=== PATIENT | male | born 1965 | race Caucasian/White ===

== ENCOUNTER 2022-08-27 07:25 | Inpatient (IN) ==
[2022-08-27] MEDS ORDERED: niCARdipine HCL INJ 2.5 MG/ML 10 ML AMP ONE (07:34)
[2022-08-27] MEDS ORDERED: HEPARIN (PORCINE) 1000 UNIT/ML 10 ML (CATH LAB USE ONLY) ONE ×2 (07:34→08:28)
[2022-08-27] MEDS ORDERED: MIDAZOLAM HCL 1 MG/ML 2ML VIAL ONE ×2 (07:34→08:32)
[2022-08-27] MEDS ORDERED: NITROGLYCERIN/D5W 100MCG/ML 20ML SYR ONE (07:35)
[2022-08-27] MEDS ORDERED: fentaNYL citrate 100 MCG/2 ML VIAL ONE (07:35)
--- NOTE | 2022-08-27 07:38 | Emergency Department Note ---
Impression & Plan STEMI (ST elevation myocardial infarction), HTN (hypertension) with goal to be determined ED Provider Note Name: EARL LUDWIG Age: 56 Sex: M Arrives Via: Walk-In Informant: Patient ED Provider: David Underwood MD Chief Complaint: Chest pain Impression: As per impressions above Medical Decision Makin-year-old male without significant past medical history who is a smoker and does have a family history of cardiac disease arrives for evaluation of subster nal chest pain. Pain starting about 12 hours prior to arrival though significantly worse in the last few hours. And is dyspneic, tachypneic, diaphoretic and very uncomfortable on arrival. He was placed on a nonrebreather with vast improvement in his symptoms. Initial EKG with inferior STEMI morp hology and heart alert was immediately called. Initial exam with good pulses all 4 extremities and a chest x-ray without widened mediastinum. He was given aspirin 324 mg p.o. His blood pressure is significantly elevated thus he was given sublingual nitro x2 with improvement in his blood pressure. Patient has essentially resolution of his pain at this point. He was taken emergently to the Electric Meter Repairer. Prior Medical Record and Triage/Nursing Notes reviewed by Me Additional history obtained from significant other Differentials:Cardiac ischemia, aortic dissection, pulmonary embolism, pneumothorax, pneumonia, pericarditis, myocarditis, esophageal rupture, GERD, cholecystitis, pancreatitis, musculoskeletal, as well as other pathologies. Vital Signs: reviewed and remarkable for HTN Interventions: Aspirin 324mg PO, SLNTG. Heparin/other anticoagulant deferred to street inspector at bedside. Labs:Reviewed and remarkable for elevated trop Imaging:X ray results are stated below per my interpretation: Reviewed by Hospitalist Chest: 1 view: No infiltrate, no effusion, normal cardiac border. EKG:As per my interpretation. Indication chest pain. Normal sinus rhythm at 69 bpm with a widened QRS and findings of a right bundle branch block. Acute STEMI morphology noted primarily through the inferior leads. No previous EKG for comparison. There is no ectopy. QTc is 424. Cardiac/Tele Monitoring: Cardiac Monitoring: An Order was placed for continuous cardiac monitoring. The monitor shows a rate of 70 with a normal sinus rhythm. Consults:Dr Ludwig Interventional Cardiology. Dr Myke Peck Hospitalist Plan: Disposition:Hospitalization. Condition: Good History of Present Illness:56-year-old male arrives for evaluation of chest pain. Patient notes mild substernal chest pain overnight. Rapidly worsening this morning. Worse with exertion. He notes diaphoresis, nausea, lightheadedness. He does admit he feels somewhat short of breath as well. He denies any syncope, pain to his back or shoulders, vomiting, abdominal pain or other concerning signs or symptoms. He has had no recent fevers, colds, illness. Patient without any significant past medical history. He does note a family history of cardiac disease. Patient also is a smoker 5 to 6 cigarettes a day. He notes he had been feeling well up until last night. No falls, trauma, injuries. No medications prior to arrival. ROS: See above HPI for pertinent positives & negatives. A total of 10 systems reviewed and were otherwise negative. 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 diaphoretic EYES: No scleral icterus, unremarkable pupils. ENT: Mucous membranes moist, no nasal congestion. NECK: No masses appreciated, nomeningismus, trachea is midline. RESPIRATORY: Tachypnea. Clear to auscultation and equal bilaterally. No wheeze, no rhonchi. CARDIOVASCULAR: Regular rate and rhythm.No murmurs, rubs, gallops appreciated. GASTROINTESTINAL: Abdomen soft, non-tender, no peritonitis.Bowel sounds positive.No masses appreciated. BACK: No midline tenderness, no CVA tenderness EXTREMITIES: Normal motion all extremities, no cyanosis, no edema. NEUROLOGIC: Alert and oriented, no acute motor or sensory deficits, no focal weakness, cranial nerves grossly intact. SKIN: No rash, no jaundice, no diaphoresis. Rash over back/arms consistent with psoriasis like. PSYCH: Appropriate GCS: 15 ED Course: Times/Reassessments: Patient feeling much better after oxygen and nitroglycerin. Blood pressure is trending down. Patient understands the severity of illness and need for Electric Meter Rep[facility]r. Lawyers at bedside and the patient to Electric Meter Repairer for further management. Critical Care: I have personally spent 35 minutes of critical care time in the direct management of this patient. Acute inferior myocardial infarction requiring stabilization and transfer to cardiac Electric Meter Repairer. Cath team through Heart Alert was initiated. This was a life/limb threatening event. This 35 minutes is in excess of all separately billable procedures. David Underwood MD Past Med/Surg History Medical History (Updated 08/27/22 @ 15:26 by David Underwood MD) Eczema HTN (hypertension) with goal to be determined Tobacco use disorder Surgical History (Updated 08/27/22 @ 10:07 by Collin Figueredo MD) H/O left knee surgery Family History (Updated 08/27/22 @ 10:08 by Collin Figueredo MD) Father Heart disease Brother Diabetes Social History (Updated 08/27/22 @ 10:07 by Collin Figueredo MD) Smoking Status: Current every day smoker Cigarettes Per Day: 20; Second Hand Exposure: Yes; Do You Dip or Chew Tobacco: No; Tobacco Cessation Education Requested by Patient: Yes Hx Alcohol Use: No Hx Substance Use: No Preferred Language: Colombian Communication Ability: Effective Thoracic Surgeon Required: No Beliefs That Will Affect Care: None Current Living Situation: Significant Other Other Information That Helps Us Care for You: No Feels Safe at Home: Yes Safety Concerns: Feels Safe At This Time Assistive Devices: None Allergies Allergies Allergy/AdvReac Type Severity Reaction Status Date / Time No Known Allergies Allergy Unverified 08/27/22 10:54 Home Meds Home Medications Medication Instructions Recorded Confirmed Tylenol 500 mg PO UNKNOWN PRN Pain 08/27/22 08/27/22 ibuprofen 100 mg tablet 100 mg PO UNKNOWN PRN Pain 08/27/22 08/27/22 Results & Data (ED) Vital Signs Vital Signs - 24 hr 08/27/22 07:26 08/27/22 07:26 08/27/22 07:26 Temperature 36.6 C Temperature Source Oral Pulse Rate 89 Pulse Rate [Apical] 88 Pulse Rate from SpO2 Sensor Pulse Rhythm [Apical] Pulse Strength [Apical] Respiratory Rate 16 16 Respiratory Effort / Characteristics Respiratory Depth Respiratory Pattern Blood Pressure 145/108 H Blood Pressure [Left Radial Artery] 145/108 H Blood Pressure Mean 120 Blood Pressure Mean [Left Radial Artery] 120 Pulse Oximetry 100 100 Oxygen Delivery Method Room Air Oxygen Flow Rate Sepsis Recent Fever Within 48 Hours No Sepsis New/Unexplained Change in Mental Status No Sepsis Action Taken by Nursing No Action Required 08/27/22 07:38 08/27/22 07:38 08/27/22 07:45 Temperature Temperature Source Pulse Rate 69 90 Pulse Rate [Apical] Pulse Rate from SpO2 Sensor 71 90 Pulse Rhythm [Apical] Pulse Strength [Apical] Respiratory Rate 26 H 22 Respiratory Effort / Characteristics Respiratory Depth Respiratory Pattern Blood Pressure 145/108 H Blood Pressure [Left Radial Artery] Blood Pressure Mean 120 Blood Pressure Mean [Left Radial Artery] Pulse Oximetry 100 100 Oxygen Delivery Method Non-rebreather Oxygen Flow Rate 15 Sepsis Recent Fever Within 48 Hours Sepsis New/Unexplained Change in Mental Status Sepsis Action Taken by Nursing 08/27/22 07:45 08/27/22 07:51 08/27/22 07:51 Temperature Temperature Source Pulse Rate 86 Pulse Rate [Apical] Pulse Rate from SpO2 Sensor 87 Pulse Rhythm [Apical] Pulse Strength [Apical] Respiratory Rate 18 Respiratory Effort / Characteristics Respiratory Depth Respiratory Pattern Blood Pressure 203/157 H 196/133 H Blood Pressure [Left Radial Artery] Blood Pressure Mean 172 154 Blood Pressure Mean [Left Radial Artery] Pulse Oximetry 100 Oxygen Delivery Method Non-rebreather Oxygen Flow Rate 15 Sepsis Recent Fever Within 48 Hours Sepsis New/Unexplained Change in Mental Status Sepsis Action Taken by Nursing 08/27/22 07:53 08/27/22 07:53 08/27/22 07:55 Temperature Temperature Source Pulse Rate 88 95 H Pulse Rate [Apical] Pulse Rate from SpO2 Sensor 88 94 H Pulse Rhythm [Apical] Pulse Strength [Apical] Respiratory Rate 25 H 18 Respiratory Effort / Characteristics Respiratory Depth Respiratory Pattern Blood Pressure 200/136 H Blood Pressure [Left Radial Artery] Blood Pressure Mean 157 Blood Pressure Mean [Left Radial Artery] Pulse Oximetry 100 100 Oxygen Delivery Method Non-rebreather Non-rebreather Oxygen Flow Rate 15 15 Sepsis Recent Fever Within 48 Hours Sepsis New/Unexplained Change in Mental Status Sepsis Action Taken by Nursing 08/27/22 07:55 08/27/22 09:00 Temperature Temperature Source Pulse Rate Pulse Rate [Apical] 80 Pulse Rate from SpO2 Sensor Pulse Rhythm [Apical] Regular Pulse Strength [Apical] Normal Respiratory Rate 24 Respiratory Effort / Characteristics Non-Labored Spontaneous Respiratory Depth Normal Respiratory Pattern Regular Blood Pressure 148/123 H Blood Pressure [Left Radial Artery] Blood Pressure Mean 131 Blood Pressure Mean [Left Radial Artery] Pulse Oximetry 95 Oxygen Delivery Method Nasal Cannula Oxygen Flow Rate 4 Sepsis Recent Fever Within 48 Hours Sepsis New/Unexplained Change in Mental Status Sepsis Action Taken by Nursing Laboratory Data Result diagrams: 08/27/22 07:37 08/27/22 07:37 Lab Results 08/27/22 08/27/22 08/27/22 Range/Units 07:37 07:37 07:37 WBC 11.92 H (4.8-10.8) K/ul RBC 5.30 (4.63-6.08) M/uL Hgb 15.5 (14.0-18.0) g/dl POC Hgb (14.0-18.0) g/dl Hct 45.8 (40.1-51.0) % POC Hct (42-52) % MCV 86.4 (80.0-100.0) fL MCH 29.2 (25.0-34.0) pg MCHC 33.8 (32.0-36.0) g/dL RDW Std Deviation 43.1 (36.4-46.3) fL RDW Coeff of Chetan 13.7 (11.5-14.5) % Plt Count 363 (130-400) K/uL MPV 9.6 (9.4-12.4) fL Immature Gran % (Auto) 0.3 % Neut % (Auto) 60.2 % Lymph % (Auto) 29.6 % [place] % (Auto) 6.7 % Eos % (Auto) 2.7 % Baso % (Auto) 0.5 % Neut # (Auto) 7.17 H (1.4-6.5) K/uL Lymph # (Auto) 3.53 H (1.2-3.4) K/uL [place] # (Auto) 0.80 (0.24-0.82) K/uL Eos # (Auto) 0.32 (0-0.50) K/uL Baso # (Auto) 0.06 (0-0.2) K/uL Immature Gran # (Auto) 0.04 H (0.00-0.02) K/uL PT 10.6 (9.0-12.0) Seconds INR 1.0 (0.9-1.1) APTT 28.2 (21.0-31.0) Seconds PTT Ratio 1.0 Activ Coag Time Kaolin (94-140) SECONDS POC Sodium (135-144) mmol/L Sodium 137 (136-145) mmol/L POC Potassium (3.3-5.0) mmol/L Potassium 3.8 (3.5-5.1) mmol/L POC Chloride (101-112) mmol/L Chloride 105 (98-107) mmol/L Carbon Dioxide 24 (21-32) mmol/L POC Total CO2 (24-31) mmol/L Anion Gap 8 (3-11) POC Anion Gap (16-25) mmol/L POC BUN (7-18) mg/dl BUN 22 (6-23) mg/dl Creatinine 0.84 (0.6-1.4) mg/dl POC Creatinine (0.6-1.3) mg/dl Est Cr Clr Drug Dosing 140.6 ml/min Est GFR ( Amer) 113.4 ml/min Est GFR (Non-Af Amer) 97.9 ml/min BUN/Creatinine Ratio 26.2 H (10-20) Glucose 144 H (70-99(Fasting)) mg/dl POC Glucose (other) (70-99) mg/dl Calcium 9.2 (8.5-10.1) mg/dl POC Ioniz Calcium Zara (1.12-1.32) mmol/l Magnesium 1.8 (1.7-2.4) mg/dl Total Bilirubin 0.5 (0.2-1.0) mg/dl Direct Bilirubin 0.1 (0-0.2) mg/dl AST 25 (13-39) U/L ALT 28 (7-52) U/L Alkaline Phosphatase 79 (34-104) U/L Troponin I High Sens 760.6 H* (0-20) pg/ml Total Protein 7.2 (6.0-8.3) gm/dl Albumin 4.2 (3.4-5.0) gm/dl Lipase 7 L (11-82) U/L Procalcitonin (0-0.5) ng/ml SARS-CoV-2, RNA, NAAT (NEGATIVE) 08/27/22 08/27/22 08/27/22 Range/Units 07:37 07:41 07:45 WBC (4.8-10.8) K/ul RBC (4.63-6.08) M/uL Hgb (14.0-18.0) g/dl POC Hgb 16.3 (14.0-18.0) g/dl Hct (40.1-51.0) % POC Hct 48 (42-52) % MCV (80.0-100.0) fL MCH (25.0-34.0) pg MCHC (32.0-36.0) g/dL RDW Std Deviation (36.4-46.3) fL RDW Coeff of Chetan (11.5-14.5) % Plt Count (130-400) K/uL MPV (9.4-12.4) fL Immature Gran % (Auto) % Neut % (Auto) % Lymph % (Auto) % [place] % (Auto) % Eos % (Auto) % Baso % (Auto) % Neut # (Auto) (1.4-6.5) K/uL Lymph # (Auto) (1.2-3.4) K/uL [place] # (Auto) (0.24-0.82) K/uL Eos # (Auto) (0-0.50) K/uL Baso # (Auto) (0-0.2) K/uL Immature Gran # (Auto) (0.00-0.02) K/uL PT (9.0-12.0) Seconds INR (0.9-1.1) APTT (21.0-31.0) Seconds PTT Ratio Activ Coag Time Kaolin (94-140) SECONDS POC Sodium 139 (135-144) mmol/L Sodium (136-145) mmol/L POC Potassium 3.7 (3.3-5.0) mmol/L Potassium (3.5-5.1) mmol/L POC Chloride 103 (101-112) mmol/L Chloride (98-107) mmol/L Carbon Dioxide (21-32) mmol/L POC Total CO2 22 L (24-31) mmol/L Anion Gap (3-11) POC Anion Gap 19.0 (16-25) mmol/L POC BUN 23 H (7-18) mg/dl BUN (6-23) mg/dl Creatinine (0.6-1.4) mg/dl POC Creatinine 0.8 (0.6-1.3) mg/dl Est Cr Clr Drug Dosing ml/min Est GFR ( Amer) ml/min Est GFR (Non-Af Amer) ml/min BUN/Creatinine Ratio (10-20) Glucose (70-99(Fasting)) mg/dl POC Glucose (other) 142 H (70-99) mg/dl Calcium (8.5-10.1) mg/dl POC Ioniz Calcium Zara 1.16 (1.12-1.32) mmol/l Magnesium (1.7-2.4) mg/dl Total Bilirubin (0.2-1.0) mg/dl Direct Bilirubin (0-0.2) mg/dl AST (13-39) U/L ALT (7-52) U/L Alkaline Phosphatase (34-104) U/L Troponin I High Sens (0-20) pg/ml Total Protein (6.0-8.3) gm/dl Albumin (3.4-5.0) gm/dl Lipase (11-82) U/L Procalcitonin < 0.05 (0-0.5) ng/ml SARS-CoV-2, RNA, NAAT NEGATIVE (NEGATIVE) 08/27/22 08/27/22 Range/Units 08:25 08:42 WBC (4.8-10.8) K/ul RBC (4.63-6.08) M/uL Hgb (14.0-18.0) g/dl POC Hgb (14.0-18.0) g/dl Hct (40.1-51.0) % POC Hct (42-52) % MCV (80.0-100.0) fL MCH (25.0-34.0) pg MCHC (32.0-36.0) g/dL RDW Std Deviation (36.4-46.3) fL RDW Coeff of Chetan (11.5-14.5) % Plt Count (130-400) K/uL MPV (9.4-12.4) fL Immature Gran % (Auto) % Neut % (Auto) % Lymph % (Auto) % [place] % (Auto) % Eos % (Auto) % Baso % (Auto) % Neut # (Auto) (1.4-6.5) K/uL Lymph # (Auto) (1.2-3.4) K/uL [place] # (Auto) (0.24-0.82) K/uL Eos # (Auto) (0-0.50) K/uL Baso # (Auto) (0-0.2) K/uL Immature Gran # (Auto) (0.00-0.02) K/uL PT (9.0-12.0) Seconds INR (0.9-1.1) APTT (21.0-31.0) Seconds PTT Ratio Activ Coag Time Kaolin 231 H 225 H (94-140) SECONDS POC Sodium (135-144) mmol/L Sodium (136-145) mmol/L POC Potassium (3.3-5.0) mmol/L Potassium (3.5-5.1) mmol/L POC Chloride (101-112) mmol/L Chloride (98-107) mmol/L Carbon Dioxide (21-32) mmol/L POC Total CO2 (24-31) mmol/L Anion Gap (3-11) POC Anion Gap (16-25) mmol/L POC BUN (7-18) mg/dl BUN (6-23) mg/dl Creatinine (0.6-1.4) mg/dl POC Creatinine (0.6-1.3) mg/dl Est Cr Clr Drug Dosing ml/min Est GFR ( Amer) ml/min Est GFR (Non-Af Amer) ml/min BUN/Creatinine Ratio (10-20) Glucose (70-99(Fasting)) mg/dl POC Glucose (other) (70-99) mg/dl Calcium (8.5-10.1) mg/dl POC Ioniz Calcium Zara (1.12-1.32) mmol/l Magnesium (1.7-2.4) mg/dl Total Bilirubin (0.2-1.0) mg/dl Direct Bilirubin (0-0.2) mg/dl AST (13-39) U/L ALT (7-52) U/L Alkaline Phosphatase (34-104) U/L Troponin I High Sens (0-20) pg/ml Total Protein (6.0-8.3) gm/dl Albumin (3.4-5.0) gm/dl Lipase (11-82) U/L Procalcitonin (0-0.5) ng/ml SARS-CoV-2, RNA, NAAT (NEGATIVE) Administered Medications Atorvastatin Calcium (Atorvastatin 40 Mg Tab) 80 mg PO QAM JONY Stop: 09/26/22 10:59 Last Admin: 08/27/22 11:34 Dose: 80 mg Documented By: OK Sodium Chloride (Nss 1000ml) 1,000 mls @ 100 mls/hr IV .Q10H JONY Stop: 08/27/22 16:29 Last Admin: 08/27/22 09:30 Dose: 100 mls/hr Documented By: OK Metoprolol Tartrate (Metoprolol Tartrate 25 Mg Tab) 25 mg PO BID JONY Stop: 09/26/22 10:59 Last Admin: 08/27/22 11:33 Dose: 25 mg Documented By: OK Pantoprazole Sodium (Pantoprazole 40 Mg Tab) 40 mg PO DAILY JONY Stop: 09/26/22 10:59 Last Admin: 08/27/22 11:34 Dose: 40 mg Documented By: OK Discontinued Medications Aspirin (Aspirin 81 Mg Chew) 324 mg PO NOW STA Stop: 08/27/22 07:46 Last Admin: 08/27/22 07:48 Dose: 324 mg Documented By: SHERYL Eptifibatide (Eptifibatide 0.75 Mg/Ml 75mg Vial (Electric Meter Repairer Use Only)) Confirm Administered Dose 75 mg .ROUTE .STK-MED ONE Stop: 08/27/22 08:35 Last Admin: 08/27/22 09:00 Dose: 75 mg Documented By: CELIA Eptifibatide (Eptifibatide 2 Mg/Ml 10 Ml Vial (Electric Meter Repairer Use Only)) Confirm Adm inistered Dose 20 mg IV .STK-MED ONE Stop: 08/27/22 08:35 Last Admin: 08/27/22 09:00 Dose: 11.3 ml Documented By: CELIA Eptifibatide (Eptifibatide 2 Mg/Ml 10 Ml Vial (Electric Meter Repairer Use Only)) Confirm Administered Dose 40 mg IV .STK-MED ONE Stop: 08/27/22 09:06 Last Admin: 08/27/22 09:06 Dose: 11.3 ml Documented By: CELIA Fentanyl Citrate (Fentanyl Citrate 100 Mcg/2 Ml Vial) Confirm Administered Dose 100 mcg .ROUTE .STK-MED ONE Stop: 08/27/22 07:36 Last Admin: 08/27/22 08:53 Dose: 100 mcg Documented By: CELIA Heparin Sodium (Porcine) (Heparin (Porcine) 1000 Unit/Ml 10 Ml (Electric Meter Repairer Use Only)) Confirm Administered Dose 10,000 units .ROUTE .STK-MED ONE Stop: 08/27/22 07:35 Last Admin: 08/27/22 08:53 Dose: 10,000 units Documented By: CELIA Heparin Sodium (Porcine) (Heparin (Porcine) 1000 Unit/Ml 10 Ml (Electric Meter Repairer Use Only)) Confirm Administered Dose 10,000 units .ROUTE .STK-MED ONE Stop: 08/27/22 08:29 Last Admin: 08/27/22 08:54 Dose: 6,000 units Documented By: CELIA Heparin Sodium/Sodium Chloride (Heparin In Nss Infusion 1000 Unit/500 Ml (2 U/Ml) Bag) Confirm Administered Dose 3,000 units IV .STK-MED ONE Stop: 08/27/22 07:36 Last Admin: 08/27/22 08:54 Dose: 3,000 units Documented By: CELIA Eptifibatide (Integrilin) 75 mg in 100 mls @ 20 mls/hr IV .Q5H JONY; Protocol Stop: 08/27/22 11:59 Last Infusion: 08/27/22 12:00 Dose: 0 mg/hr, 0 mls/hr Documented By: OK Co-signed By: CELIA(2) Admin: 08/27/22 09:30 Dose: 15 mg/hr, 20 mls/hr Documented By: OK Co-signed By: CARISSA Lidocaine HCl (Lidocaine 1% Local 20 Ml Vial) Confirm Administered Dose 40 ml .ROUTE .STK-MED ONE Stop: 08/27/22 14:05 Last Admin: 08/27/22 14:17 Dose: Not Given Documented By: OK Midazolam HCl (Midazolam Hcl 1 Mg/Ml 2ml Vial) Confirm Administered Dose 2 mg .ROUTE .STK-MED ONE Stop: 08/27/22 07:35 Last Admin: 08/27/22 08:53 Dose: 2 mg Documented By: CELIA Midazolam HCl (Midazolam Hcl 1 Mg/Ml 2ml Vial) Confirm Administered Dose 2 mg .ROUTE .STK-MED ONE Stop: 08/27/22 08:33 Last Admin: 08/27/22 08:54 Dose: 2 mg Documented By: CELIA Miscellaneous Information (Patient's Allergy Info Needs Entered) 1 each N/A Q30M [facility] Stop: 08/27/22 14:00 Last Admin: 08/27/22 12:25 Dose: Not Given Documented By: Admin: 08/27/22 12:23 Dose: Not Given Documented By: Admin: 08/27/22 12:23 Dose: 1 each Documented By: Admin: 08/27/22 10:56 Dose: Not Given Documented By: Admin: 08/27/22 10:56 Dose: 1 each Documented By: Admin: 08/27/22 10:53 Dose: 1 each Documented By: OK Nicardipine HCl (Nicardipine Hcl Inj 2.5 Mg/Ml 10 Ml Amp) Confirm Administered Dose 25 mg .ROUTE .STK-MED ONE Stop: 08/27/22 07:35 Last Admin: 08/27/22 08:53 Dose: 25 mg Documented By: CELIA Nitroglycerin (Nitroglycerin Sl 0.4 Mg/Tab Tab) 0.4 mg SL NOW STA Stop: 08/27/22 07:51 Last Admin: 08/27/22 07:51 Dose: 0.4 mg Documented By: SHERYL Nitroglycerin (Nitroglycerin Sl 0.4 Mg/Tab Tab) Confirm Administered Dose 0.4 mg .ROUTE .STK-MED ONE Stop: 08/27/22 07:51 Last Admin: 08/27/22 07:58 Dose: 0.4 mg Documented By: SEHRYL Nitroglycerin/Dextrose (Nitroglycerin/D5w 100mcg/Ml 20ml Syr) Confirm Administered Dose 2,000 mcg .ROUTE .STK-MED ONE Stop: 08/27/22 07:36 Last Admin: 08/27/22 08:54 Dose: 2,000 mcg Documented By: CELIA Ticagrelor (Ticagrelor 90 Mg Tab) Confirm Administered Dose 180 mg .ROUTE .STK- MED ONE Stop: 08/27/22 08:06 Last Admin: 08/27/22 08:54 Dose: 180 mg Documented By: CELIA Imaging Data Radiologist's Impression: Chest X-Ray 08/27/22 07:34 XR chest 1V portable CLINICAL HISTORY: STEMI TECHNIQUE: Single frontal radiograph of the chest was obtained. Comparison: None available at the time of this dictation. FINDINGS: No lines and tubes are seen. The cardiac silhouette is mildly prominent accounting for projection. The lungs are clear. No evidence of pleural effusion or pneumothorax. IMPRESSION: No acute chest disease. ACT 112: Negative or not required by law. Electronically signed by: Stas Warner M.D. 08/27/2022 7:58 AM Discharge Plan Visit Data Chief Complaint: Chest Pain Stated Complaint: SHARP ACUTE CHEST PAIN ED Provider: David Underwood Discharge Problem: STEMI (ST elevation myocardial infarction), HTN (hypertension) with goal to be determined Patient Disposition: Admitted As Inpatient Discharge Instructions Interventions: ED Discharge Assessment Last Done: 08/27/22 08:00
[2022-08-27] MEDS ORDERED: ASPIRIN 81 MG CHEW PO STA (07:45)
[2022-08-27 07:47] LABS: Basophils # (auto) 0.06 K/uL (0-0.2); Basophils % (auto) 0.5 %; Eosinophils # (auto) 0.32 K/uL (0-0.50); Eosinophils % (auto) 2.7 %; Hematocrit (blood only) 45.8 % (40.1-51.0); Hemoglobin 15.5 g/dl (14.0-18.0); Immature Granulocytes # (auto) 0.04 K/uL (0.00-0.02); Immature Granulocytes % (auto) 0.3 %; Lymphocytes # (auto) 3.53 K/uL (1.2-3.4); Lymphocytes % (auto) 29.6 %; Mean Corpuscular Hemoglobin 29.2 pg (25.0-34.0); Mean Corpuscular Hgb Conc 33.8 g/dL (32.0-36.0); Mean Corpuscular Volume 86.4 fL (80.0-100.0); Mean Platelet Volume 9.6 fL (9.4-12.4); Monocytes % (auto) 6.7 %; Neutrophils # (auto) 7.17 K/uL (1.4-6.5); Neutrophils % (auto) 60.2 %; Platelet Count 363 K/uL (130-400); RDW Coefficient of Variation 13.7 % (11.5-14.5); RDW Standard Deviation 43.1 fL (36.4-46.3); White Blood Count 11.92 K/ul (4.8-10.8)
[2022-08-27] MEDS ORDERED: NITROGLYCERIN SL 0.4 MG/TAB TAB ONE (07:50)
[2022-08-27] MEDS ORDERED: NITROGLYCERIN SL 0.4 MG/TAB TAB SL STA (07:50)
[2022-08-27 07:53] LABS: iSTAT Creatinine 0.8 mg/dl (0.6-1.3); iSTAT Hemoglobin 16.3 g/dl (14.0-18.0); iSTAT Ionized Calcium 1.16 mmol/l (1.12-1.32); iSTAT Potassium 3.7 mmol/L (3.3-5.0)
[2022-08-27 07:59] LABS: Partial Thromboplastin Time 28.2 Seconds (21.0-31.0); Prothrombin Time 10.6 Seconds (9.0-12.0)
--- NOTE | 2022-08-27 08:00 | XRay Report ---
XR chest 1V portable CLINICAL HISTORY: STEMI TECHNIQUE: Single frontal radiograph of the chest was obtained. Comparison: None available at the time of this dictation. FINDINGS: No lines and tubes are seen. The cardiac silhouette is mildly prominent accounting for projection. Th e lungs are clear. No evidence of pleural effusion or pneumothorax. IMPRESSION: No acute chest disease. ACT 112: Negative or not required by law. Electronically signed by: Stas Warner M.D. 08/27/2022 7:58 AM
[2022-08-27] MEDS ORDERED: TICAGRELOR 90 MG TAB ONE (08:05)
--- NOTE | 2022-08-27 08:06 | Pre Anesthesia Assessment ---
Date of Service August 27, 2022 Pre Sedation Assessment Vital Signs Temp Pulse Pulse Resp BP BP Pulse Ox 08/27/22 07:55 148/123 H 08/27/22 07:55 95 H 18 100 08/27/22 07:53 88 25 H 100 08/27/22 07:53 200/136 H 08/27/22 07:51 86 18 100 08/27/22 07:51 196/133 H 08/27/22 07:45 203/157 H 08/27/22 07:45 90 22 100 08/27/22 07:38 69 26 H 100 08/27/22 07:38 145/108 H 08/27/22 07:26 88 16 145/108 H 100 08/27/22 07:26 08/27/22 07:26 97.9 F 89 16 145/108 H 100 O2 Del Method O2 Flow Rate 08/27/22 07:55 08/27/22 07:55 Non-rebreather 15 08/27/22 07:53 Non-rebreather 15 08/27/22 07:53 08/27/22 07:51 Non-rebreather 15 08/27/22 07:51 08/27/22 07:45 08/27/22 07:45 Non-rebreather 15 08/27/22 07:38 08/27/22 07:38 08/27/22 07:26 08/27/22 07:26 Room Air 08/27/22 07:26 Cardiovascular RRR, no murmur, no edema Respiratory normal respiratory effort, lungs clear to auscultation Pre-Sedation Airway Assessment Smoking Status: Current every day smoker Hx Sleep Apnea: No Hx Difficult Intubation: No Short, Thick Neck: No Thyromental Distance: > or= 3.5 Finger Breadths Oral Cavity: + Dental Abnormalities and + WNL Mallampati Class: III ASA: ASA4 Procedure Planning Contraindications for Sedation: none Current Medications Reviewed: Yes Notes The planned sedation has been discussed with the patient. Informed Consent was obtained. I have identified the patient, determined the appropriateness of sedation and have assessed the patient immediately prior to the procedure. All medicine(s) and interventions are by my order.
[2022-08-27 08:10] LABS: Albumin Level 4.2 gm/dl (3.4-5.0); BUN Creatinine Ratio 26.2 (10-20); Bilirubin Direct 0.1 mg/dl (0-0.2); Bilirubin,Total 0.5 mg/dl (0.2-1.0); Calcium 9.2 mg/dl (8.5-10.1); Creatinine Clr Calc Pharmacy 140.6 ml/min; Est GFR (African American) 113.4 ml/min; Est GFR (Non-African American) 97.9 ml/min; Magnesium 1.8 mg/dl (1.7-2.4); Potassium 3.8 mmol/L (3.5-5.1); Total Protein 7.2 gm/dl (6.0-8.3)
[2022-08-27 08:23] LABS: Troponin I High Sensitivity 760.6 pg/ml (0-20)
[2022-08-27] MEDS ORDERED: EPTIFIBATIDE 2 MG/ML 10 ML VIAL (CATH LAB USE ONLY) IV ONE ×2 (08:34→09:05)
[2022-08-27] MEDS ORDERED: EPTIFIBATIDE 0.75 MG/ML 75MG VIAL (CATH LAB USE ONLY) ONE (08:34)
[2022-08-27] MEDS ORDERED: ONDANSETRON INJ 2 MG/ML 2 ML VIAL IV PRN (08:55)
[2022-08-27] MEDS ORDERED: ACETAMINOPHEN 325 MG TAB PO PRN (08:55)
[2022-08-27] MEDS ORDERED: EPTIFIBATIDE BOLUS/DRIP IV STA (08:55)
[2022-08-27] MEDS ORDERED: STAT IV Infusion **Titration per Protocol STA (08:55)
[2022-08-27] MEDS ORDERED: SODIUM CHLORIDE 0.9% 1000ML 1,000 ML IV SCH (09:00)
[2022-08-27] MEDS ORDERED: EPTIFIBATIDE 75 MG/100 ML VIAL IV SCH (09:00)
[2022-08-27] MEDS ORDERED: ICU PROTOCOL FOR HYPERGLYCEMIA PRN (09:00)
--- NOTE | 2022-08-27 09:27 | Cardiology Consultation ---
Date of Consultation August 27, 2022 Assessment & Plan (1) STEMI (ST elevation myocardial infarction): Presentation consistent with inferolateral STEMI and recommend proceeding with emergent cardiac catheterization and likely primary PCI. No apparent contraindications to procedure. Discussed risks, benefits, alternatives of procedure with patient and they are willing to proceed. Further recommendations pending findings of coronary angiography. History of Present Illness History of Present Illness 56-year-old man here with acute chest pain and ECG concerning for acute TX. Patient seen emergently in the ED after heart alert activated on arrival. No prior cardiac history. He has a history of hypertension but is currently on no medications. Also obesity, ongoing smoker and family history of premature CAD. Chest pain began approximately 2 AM, approximately 5 hours prior to arrival. Chest pain woke him from sleep. Describes diffuse chest pressure pain with associated nausea. Denies similar symptoms in the past. Does report that with exertion over the last week or so has been more short of breath with exertion. Active chest pain on arrival, improved with sublingual nitroglycerin, oxygen. Hemodynamically stable. ECG showed junctional rhythm, ventricular rate of [address] elevations. Social history: Works construction for [employer]. Patient History Social History Smoking Status: Current every day smoker Preferred Language: Macedonian Feels Safe at Home: Yes Review of Systems Review of Systems: Not completed in the setting of emergency situation Physical Exam Physical Exam: General: Uncomfortable, nonrebreather in place HEENT: Sclerae anicteric Lungs: Clear to auscultation anteriorly Cardiac: Regular rate and rhythm, no murmurs. Vascular: 2+ radial bilaterally Abdomen: Soft, nontender Extremities: Well perfused, no peripheral edema Neuro: Nonfocal Psych: Alert orient x3 Results & Data ([facility]) Vital Signs (Past 12 Hours) Vital Signs Temp Pulse Pulse Resp BP BP Pulse Ox 08/27/22 07:55 148/123 H 08/27/22 07:55 95 H 18 100 08/27/22 07:53 88 25 H 100 08/27/22 07:53 200/136 H 08/27/22 07:51 86 18 100 08/27/22 07:51 196/133 H 08/27/22 07:45 203/157 H 08/27/22 07:45 90 22 100 08/27/22 07:38 69 26 H 100 08/27/22 07:38 145/108 H 08/27/22 07:26 88 16 145/108 H 100 08/27/22 07:26 08/27/22 07:26 97.9 F 89 16 145/108 H 100 O2 Del Method O2 Flow Rate 08/27/22 07:55 08/27/22 07:55 Non-rebreather 15 08/27/22 07:53 Non-rebreather 15 08/27/22 07:53 08/27/22 07:51 Non-rebreather 15 08/27/22 07:51 08/27/22 07:45 08/27/22 07:45 Non-rebreather 15 08/27/22 07:38 08/27/22 07:38 08/27/22 07:26 08/27/22 07:26 Room Air 08/27/22 07:26 PG Care Time/CCT Total # of Minutes Spent Total Time Spent with Patient: Total time spent is greater than 50% in coordination of care (as documented) at patient's floor/unit and/or counseling patient: Coding Level of Care Code 94157 Inpt Consult Level 4 Diagnoses STEMI (ST elevation myocardial infarction) I21.3
--- NOTE | 2022-08-27 09:27 | Post Anesthesia Assessment ---
Date of Service August 27, 2022 Post Sedation Assessment Vital Signs Temp Pulse Pulse Resp BP BP BP 08/27/22 09:15 75 20 112/77 08/27/22 09:00 80 24 08/27/22 07:55 148/123 H 08/27/22 07:55 95 H 18 08/27/22 07:53 88 25 H 08/27/22 07:53 200/136 H 08/27/22 07:51 86 18 08/27/22 07:51 196/133 H 08/27/22 07:45 203/157 H 08/27/22 07:45 90 22 08/27/22 07:38 69 26 H 08/27/22 07:38 145/108 H 08/27/22 07:26 88 16 145/108 H 08/27/22 07:26 08/27/22 07:26 97.9 F 89 16 145/108 H Pulse Ox O2 Del Method O2 Flow Rate 08/27/22 09:15 97 Nasal Cannula 4 08/27/22 09:00 95 Nasal Cannula 4 08/27/22 07:55 08/27/22 07:55 100 Non-rebreather 15 08/27/22 07:53 100 Non-rebreather 15 08/27/22 07:53 08/27/22 07:51 100 Non-rebreather 15 08/27/22 07:51 08/27/22 07:45 08/27/22 07:45 100 Non-rebreather 15 08/27/22 07:38 100 08/27/22 07:38 08/27/22 07:26 100 08/27/22 07:26 Room Air 08/27/22 07:26 100 Recovery Score Activity: Moves 4 extremities Respiration: Deep Breath/Cough Circulation: +/-20% PreAnes Value Consciousness: Fully Awake Oxygen Saturation: O2 needed for >90% Post Anesthesia Score: 9 Discharge Sedation Level of Care: Fast Track Phase II Post Sedation Plan On clinical assessment, the patient appears to have tolerated the sedation without complications. Patient is recovering as anticipated. Patient will continue to be monitored by nursing and may be discharged when sedation discharge criteria are met per below protocol. Upon Completions of procedure up to 15 minutes continue every 5 minute vital signs and the P.A.R. score; then discharge to a Phase I or Fast Track to Phase II per the following guidelines: * Discharge Patient to appropriate Phase II area if PAR is 8 or greater or return to pre- procedure baseline. The post - procedure orders will be as directed. * If PAR score is less than 8 or not return to pre-procedure baseline then patient will follow Phase I monitoring till PAR is reached for Phase II. The Phase I may be done in procedure room or may call to secure a Phase I area. * If naloxone or flumazenil are used for reversal, hold in Phase I for continued monitoring from when last reversal dose was given for a minimum of 60 minutes or longer pending the nurse and/or physician discretion of patient condition before discharge to Phase II. Please call the Sedation Physician to re-evaluate and complete post-note for discharge to Phase II area. Do NOT discharge from procedure sedation or Phase 1 until post- sedation evaluation note is complete by procedure /sedation MD Sedation Discharge Instructions to be given to the patient at discharge to home.
--- NOTE | 2022-08-27 09:40 | Cardiac Catheterization ---
[facility] Data: [employer] Cardiac Status Clinical evaluation leading to the procedure CAD Presenation: STEMI Anginal Classification: CCS IV Diagnostic Physicians Name: Jose Aguilar MD Closure Device Recommendations: PCI without planned CABG Cardiac Cath Procedure Full Procedure Date August 27, 2022 Pre-Procedure Diagnosis Pre-Procedure Diagnosis: STEMI AUC Score AUC Score: 9 Post-Procedure Diagnosis Post-Procedure Diagnosis: Severe CAD, Successful PCI and Normal Intracardiac Pressures Procedure(s) Performed Procedure(s) Performed: Coronary Angiography, Left Heart Cath, Drug Eluting Stent and Electrical Cardioversion Dermatologist Managing Partner Jose Aguilar MD System Support Developer(s) Omid Estimated Blood Loss Estimated Blood Loss: 15 Medication(s) Medication(s): Fentanyl, Heparin, Integrilin, Lidocaine 1%, Nicardipine, Nitroglycerin and Versed Medication(s): Ticagrelor Summary of Findings Indication: STEMI/Heart Alert Access: 6 Fr right radial artery Catheters: Quench left 3.5 guide, pigtail Findings: LM -normal caliber, no significant disease LAD -medium caliber, 20 to 30% proximal disease, 30% mid segment stenosis just after takeoff of D2. Small distal vessel extends to apex. Medium D2 without significant disease. Circumflex -medium caliber, midsegment luminal irregularities, 40% distal stenosis at takeoff of OM 3. Small OM 3 with 40% ostial stenosis. RCA -dominant, large caliber, proximal luminal irregularities, 100% earlymid RCA acute occlusion. LVEDP -14 -- PCI -- Antithrombotic therapy: Heparin, Integrilin, ticagrelor Procedure: RCA cannulated with Ikari left 3.5 guide BMW wire passed across lesion into distal vessel Mid RCA lesion predilated with 2.5 compliant balloon Dilated lesion stented with 3.5 x 26 mm Ridgely drug-eluting stent Stent post-dilated with 4.0 noncompliant balloon IC vasodilators administered for spasm Mild residual haziness at distal aspect of stent thought most likely to represent residual thrombus Gentle angioplasty with 2.5 balloon and IC Integrilin administered Post procedure ANNMARIE 3 flow, stent well expanded with minimal residual stenosis. No apparent cardiac complications. Minimal residual thrombus distal to stent. During procedure patient developed atrial fibrillation with RVR with borderline hypotension, systolic pressures to low 90s. Post procedure successfully cardioverted to sinus rhythm with single synchronized shock at 200 J. Arterial Closure: TR band Summary: 1. Inferior STEMI/acute 100% earlymid RCA occlusion 2. Mild to moderate non-culprit coronary artery disease -20 to 30% proximal, mid LAD disease 40% distal circumflex 3. Normal intracardiac filling pressure 4. Intraprocedure atrial fibrillation with RVR post successful cardioversion 5. Successful PCI of mid RCA with single drug-eluting stent (3.5 x 26 mm Ridgely; postdilated with 4.0 NC). Recommendations: Admit to ICU for continued monitoring Loaded with ticagrelor 180 mg in [employer] Continue Integrilin infusion for 3 hours Continue dual-antiplatelet therapy for at least 1 year. Trend troponins until peak, Check Echo Uptitrate beta-satya/ARB as BP allows High-dose statin Consult cardiac Rehab Hemodynamics Rest Ao:: 155/110/134 Final Ao: 121/68/85 LV: 110/14 Recommendations Recommendations: PCI without planned CABG Specimens Specimens: None Radiation Exposure (mGy) 2136 Contrast (mls) 85 Anesthesia Moderate 1311-0044 Procedural Complication(s) None Disposition ICU I attest to the content of the Intraoperative Record and any orders documented therein. Any exceptions are noted below. [facility] Card Cath Procedure Codes Cardiac Catheterization Procedure 1: Cardiovascular Cath Procedures: 47538 Coronaries and LHC (+/-LV) Therapeutic Services & Ancillary Procedure 1: Cardiovascular Tx and Anc Procedures: 16806 Cardioversion Moderate Sedation Procedure 1: Sedation/Anesthesia: 04923 Mod Sedation by the same physician;Init15 Min Child Age 5 & Up Procedure 2: Sedation/Anesthesia: 94877 Mod Sedation by the same physician; Ea [id number] Minutes Stenting Procedure 1: Cardiovascular Stent Procedures: 57744 Perc transluminal revascularization of acute sub/total occl, aMI PG Care Time/CCT Total # of Minutes Spent Total Time Spent with Patient: Total time spent is greater than 50% in coordination of care (as documented) at patient's floor/unit and/or counseling patient:
--- NOTE | 2022-08-27 10:20 | History & Physical Report ---
Date of Service August 27, 2022 Assessment & Plan (1) STEMI (ST elevation myocardial infarction): Plan: STEMI: Risk factors: H/O HTN, Tobacco use disorder, Obesity S/P PCI of mid RCA with single drug-eluting stent Initial troponin:760 EKG shows: signs of inferolateral ST elevations CXR: No acute chest disease. Check resting ECHO--pending Trend serial cardiac enzymes, repeat EKG AM Check lipid panel, HbA1C Started on Aspirin, Brilinta, metoprolol, Lipitor, losartan Oxygen PRN Appreciate Cardiology Input Postprocedural A. fib RVR S/P successful cardioversion Currently in sinus No anticoagulation recommended currently Cardiology on board Hypertension Quit taking medications about 2 years ago Currently not on any medications Started on metoprolol, losartan Monitor Tobacco use disorder Smokes 1 pack/day Advised to quit smoking Eczema [facility] Px: SCDs for now Code Status Full Code Admission and Anticipated Discharge Date Admission Date: August 27, 2022 History of Present Illness Chief Complaint: Chest Pain Primary Care Provider: NO PCP Patient is a 56-year-old male with history of hypertension, tobacco use disorder, eczema and no other significant past medical history presents with history of sudden onset of chest pain which woke him up from sleep at about 2 AM this morning. Patient initially thought it to be heartburn and took some antacid medication (could not specify) and went back to sleep. After he woke up for work he noticed to have significant retrosternal chest heaviness, 10/10 intensity, radiating to back of his neck and head associated with headache, nausea, diaphoresis, dizziness and dyspnea. Patient took Tylenol 500 mg which did not relieve his symptoms. No known aggravating factors. He denies similar episodes in the past. On arrival to ED, patient had ongoing chest pain which improved with sublingual nitroglycerin and supplemental oxygen. EKG showed signs of inferolateral ST elevations and heart alert was called. Patient underwent emergent cardiac catheterization and was noted to have 100% mid RCA occlusion. Patient had PCI of mid RCA with single drug-eluting stent. Patient was found to have mild residual haziness at the distal aspect of the stent thought most likely to represent residual thrombus. Postprocedure, patient developed atrial fibrillation with RVR and had successful cardioversion to sinus rhythm with single synchronized shock. Currently patient denies any chest pain, nausea, dizziness, dyspnea, headache. Also denies any history of palpitations, pedal edema, cough, fever, chills, change in vision, vomiting, abdominal pain, diarrhea, dysuria, recent change in medications. Home Medications Medication Instructions Recorded Confirmed Type Tylenol 500 mg PO UNKNOWN PRN Pain 08/27/22 08/27/22 History ibuprofen 100 mg tablet 100 mg PO UNKNOWN PRN Pain 08/27/22 08/27/22 History Past Med/Surg History Medical History (Updated 08/27/22 @ 10:06 by Collin Figueredo MD) Eczema HTN (hypertension) with goal to be determined Tobacco use disorder Surgical History (Updated 08/27/22 @ 10:07 by Collin Figueredo MD) H/O left knee surgery Family History (Updated 08/27/22 @ 10:08 by Collin Figueredo MD) Father Heart disease Brother Diabetes Social History (Updated 08/27/22 @ 10:07 by Collin Figueredo MD) Smoking Status: Current every day smoker Cigarettes Per Day: 1 pack per day; Hx Alcohol Use: No Hx Substance Use: No Preferred Language: Tongan Feels Safe at Home: Yes Review of Systems Review of Systems: All systems reviewed & are unremarkable except as noted in Subjective Physical Exam Physical Exam: Physical Exam: Vitals signs as noted above General Appearance:Obese, no apparent distress Head: normocephalic, Atraumatic Eyes: normal inspection, EOMI Neck: supple, Trachea midline Respiratory/Chest: Normal breath sounds, CTA, No accessory muscle use Cardiovascular: S1, S2, No murmur Abdomen/GI:Soft, Non tender, Bowel sounds present Extremities/Musculoskeletal:normal inspection, no edema Neurologic/Psych:AAOX3, grossly no focal neurological deficits Skin: normal color, warm, +Eczema predominantly in back Results & Data Results & Data ([facility]) Vital Signs (Past 12 Hours) Vital Signs Temp Pulse Pulse Resp BP BP BP 08/27/22 09:15 75 20 112/77 08/27/22 09:00 80 24 08/27/22 07:55 148/123 H 08/27/22 07:55 95 H 18 08/27/22 07:53 88 25 H 08/27/22 07:53 200/136 H 08/27/22 07:51 86 18 08/27/22 07:51 196/133 H 08/27/22 07:45 203/157 H 08/27/22 07:45 90 22 08/27/22 07:38 69 26 H 08/27/22 07:38 145/108 H 08/27/22 07:26 88 16 145/108 H 08/27/22 07:26 08/27/22 07:26 36.6 C 89 16 145/108 H Pulse Ox O2 Del Method O2 Flow Rate 08/27/22 09:15 97 Nasal Cannula 4 08/27/22 09:00 95 Nasal Cannula 4 08/27/22 07:55 08/27/22 07:55 100 Non-rebreather 15 08/27/22 07:53 100 Non-rebreather 15 08/27/22 07:53 08/27/22 07:51 100 Non-rebreather 15 08/27/22 07:51 08/27/22 07:45 08/27/22 07:45 100 Non-rebreather 15 08/27/22 07:38 100 08/27/22 07:38 08/27/22 07:26 100 08/27/22 07:26 Room Air 08/27/22 07:26 100 Laboratory Results Short CBC 08/27/22 Range/Units 07:37 WBC 11.92 H (4.8-10.8) K/ul Hgb 15.5 (14.0-18.0) g/dl Hct 45.8 (40.1-51.0) % Plt Count 363 (130-400) K/uL BMP 08/27/22 07:37 Sodium 137 Potassium 3.8 Chloride 105 Carbon Dioxide 24 BUN 22 Creatinine 0.84 Glucose 144 H Calcium 9.2 Liver Function 08/27/22 Range/Units 07:37 Total Bilirubin 0.5 (0.2-1.0) mg/dl Direct Bilirubin 0.1 (0-0.2) mg/dl AST 25 (13-39) U/L ALT 28 (7-52) U/L Alkaline Phosphatase 79 (34-104) U/L Albumin 4.2 (3.4-5.0) gm/dl Diagnostic Findings CXR: No acute chest disease. ECG Additional Comments: EKG: Normal sinus rhythm, right bundle branch block, ST elevation in inferolateral leads, QTC 466. Code Status & VTE Plan VTE Prophylaxis Plan VTE Prophylaxis will be ordered: Yes
[2022-08-27] MEDS: Patient's ALLERGY Info needs ENTERED SCH ×6 (10:53→12:25)
[2022-08-27] MEDS: METOPROLOL TARTRATE 25 MG TAB PO SCH ×2 (11:33→22:00)
[2022-08-27] MEDS: ATORVASTATIN 40 MG TAB PO SCH (11:34)
[2022-08-27] MEDS: PANTOprazole 40 MG TAB PO SCH (11:34)
[2022-08-27] MEDS ORDERED: LIDOCAINE 1% LOCAL 20 ML VIAL ONE (14:04)
--- NOTE | 2022-08-27 16:01 | Critical Care Consultation ---
Date of Consultation August 27, 2022 Assessment & Plan (1) STEMI (ST elevation myocardial infarction): Reason Critically Ill: 56-year-old male with ST elevation IN PLAN: Resp: Tobacco dependency -Smoking cessation CV: ST elevation IN -Successful PCI Postprocedural atrial fibrillation with rapid ventricular response -Successful electrical cardioversion Hypertension -Started on Aspirin, Brilinta, metoprolol, Lipitor, losartan GI/Nutrition: Lipid panel pending Heme: No indication for systemic anticoagulation at this time DVT prophylaxis: Patient is ambulatory Endocrine: ICU hyperglycemia protocol A1c pending Vascular access: Peripheral IVs Code Status: Full code Disposition: ICU (2) HTN (hypertension) with goal to be determined: (3) Tobacco use disorder: History of Present Illness Reason for Consultation: STEMI Requesting Physician: Dolores Stringer MD Attending Physician: Dolores Stringer MD History of Present Illness Patient is a 56-year-old male with a past medical history of hypertension, tobacco use, eczema who presented to the emergency department with sudden onset chest pain which woke him up from sleep. Pain continued despite taking antacid and radiated to his back and neck so he presented to the emergency department. Pain was improved with nitrate administration in the emergency department was found to have an ST elevation IN. Went to the cardiac Bomb [employer] Officer was noted to have 100% mid RCA occlusion. After the procedure he was noted to have atrial fibrillation with rapid ventricular response and was cardioverted at that time. During my evaluation he had mild positional chest pain similar to his prior c hest pain but it relieved with improving his position. No nausea no vomiting no headache. Allergies Allergy/AdvReac Type Severity Reaction Status Date / Time No Known Allergies Allergy Unverified 08/27/22 10:54 Home Medications Medication Instructions Recorded Confirmed Type Tylenol 500 mg PO UNKNOWN PRN Pain 08/27/22 08/27/22 History ibuprofen 100 mg tablet 100 mg PO UNKNOWN PRN Pain 08/27/22 08/27/22 History Patient History Medical History Eczema HTN (hypertension) with goal to be determined Tobacco use disorder Surgical History H/O left knee surgery Family History Father Heart disease Brother Diabetes Social History Smoking Status: Current every day smoker Cigarettes Per Day: 20; Second Hand Exposure: Yes; Do You Dip or Chew Tobacco: No; Tobacco Cessation Education Requested by Patient: Yes Hx Alcohol Use: No Hx Substance Use: No Preferred Language: Portuguese Communication Ability: Effective Pit Clerk Required: No Beliefs That Will Affect Care: None Current Living Situation: Significant Other Other Information That Helps Us Care for You: No Feels Safe at Home: Yes Safety Concerns: Feels Safe At This Time Assistive Devices: None Review of Systems Review of Systems: Mild midsternal chest discomfort which is positional in nature. Otherwise as per the HPI Physical Exam Physical Exam: General: Alert. nontoxic. Skin: Warm, dry, Head: Atraumatic Ears, nose, mouth and throat: airway patent Cardiovascular: Normal peripheral perfusion Normal sinus rhythm on bedside monitor Respiratory: no respiratory distress Gastrointestinal: Non distended Musculoskeletal: No deformity Results & Data Results & Data ([facility]) Vital Signs (Past 12 Hours) Vital Signs Temp Pulse Pulse Resp BP BP BP 08/27/22 11:00 58 L 14 148/99 H 08/27/22 10:30 63 17 125/86 08/27/22 10:15 56 L 18 135/89 08/27/22 09:30 69 08/27/22 10:30 63 15 08/27/22 10:30 125/86 08/27/22 10:20 60 18 08/27/22 10:15 71 19 08/27/22 10:15 135/89 08/27/22 10:10 66 20 08/27/22 10:10 121/90 08/27/22 10:00 69 22 08/27/22 10:00 135/87 08/27/22 09:50 66 20 08/27/22 09:45 68 26 H 08/27/22 09:45 135/94 08/27/22 09:40 72 18 08/27/22 09:30 70 24 08/27/22 09:30 124/90 08/27/22 09:29 123/89 08/27/22 09:29 73 24 123/89 08/27/22 10:00 135/87 08/27/22 09:45 135/94 08/27/22 09:49 36.7 C 76 25 H 123/89 08/27/22 09:15 75 20 112/77 08/27/22 09:00 80 24 08/27/22 07:55 148/123 H 08/27/22 07:55 95 H 18 08/27/22 07:53 88 25 H 08/27/22 07:53 200/136 H 08/27/22 07:51 86 18 08/27/22 07:51 196/133 H 08/27/22 07:45 203/157 H 08/27/22 07:45 90 22 08/27/22 07:38 69 26 H 08/27/22 07:38 145/108 H 08/27/22 07:26 88 16 145/108 H 08/27/22 07:26 08/27/22 07:26 36.6 C 89 16 145/108 H Pulse Ox O2 Del Method O2 Flow Rate 08/27/22 11:00 100 08/27/22 10:30 99 08/27/22 10:15 96 08/27/22 09:30 08/27/22 10:30 98 08/27/22 10:30 08/27/22 10:20 99 08/27/22 10:15 96 08/27/22 10:15 08/27/22 10:10 92 08/27/22 10:10 08/27/22 10:00 91 08/27/22 10:00 08/27/22 09:50 89 L 08/27/22 09:45 90 08/27/22 09:45 08/27/22 09:40 89 L 08/27/22 09:30 91 08/27/22 09:30 08/27/22 09:29 08/27/22 09:29 90 Room Air 08/27/22 10:00 08/27/22 09:45 08/27/22 09:49 90 Room Air 08/27/22 09:15 97 Nasal Cannula 4 08/27/22 09:00 95 Nasal Cannula 4 08/27/22 07:55 08/27/22 07:55 100 Non-rebreather 15 08/27/22 07:53 100 Non-rebreather 15 08/27/22 07:53 08/27/22 07:51 100 Non-rebreather 15 08/27/22 07:51 08/27/22 07:45 08/27/22 07:45 100 Non-rebreather 15 08/27/22 07:38 100 08/27/22 07:38 08/27/22 07:26 100 08/27/22 07:26 Room Air 08/27/22 07:26 100 Critical Care Results & Data Vital Signs (Past 12 Hours) Vital Signs Temp Pulse Pulse Resp BP BP BP 08/27/22 11:00 58 L 14 148/99 H 08/27/22 10:30 63 17 125/86 08/27/22 10:15 56 L 18 135/89 08/27/22 09:30 69 08/27/22 10:30 63 15 08/27/22 10:30 125/86 08/27/22 10:20 60 18 08/27/22 10:15 71 19 08/27/22 10:15 135/89 08/27/22 10:10 66 20 08/27/22 10:10 121/90 08/27/22 10:00 69 22 08/27/22 10:00 135/87 08/27/22 09:50 66 20 08/27/22 09:45 68 26 H 08/27/22 09:45 135/94 08/27/22 09:40 72 18 08/27/22 09:30 70 24 08/27/22 09:30 124/90 08/27/22 09:29 123/89 08/27/22 09:29 73 24 123/89 08/27/22 10:00 135/87 08/27/22 09:45 135/94 08/27/22 09:49 36.7 C 76 25 H 123/89 08/27/22 09:15 75 20 112/77 08/27/22 09:00 80 24 08/27/22 07:55 148/123 H 08/27/22 07:55 95 H 18 08/27/22 07:53 88 25 H 08/27/22 07:53 200/136 H 08/27/22 07:51 86 18 08/27/22 07:51 196/133 H 08/27/22 07:45 203/157 H 08/27/22 07:45 90 22 08/27/22 07:38 69 26 H 08/27/22 07:38 145/108 H 08/27/22 07:26 88 16 145/108 H 08/27/22 07:26 08/27/22 07:26 36.6 C 89 16 145/108 H Pulse Ox O2 Del Method O2 Flow Rate 08/27/22 11:00 100 08/27/22 10:30 99 08/27/22 10:15 96 08/27/22 09:30 08/27/22 10:30 98 08/27/22 10:30 08/27/22 10:20 99 08/27/22 10:15 96 08/27/22 10:15 08/27/22 10:10 92 08/27/22 10:10 08/27/22 10:00 91 08/27/22 10:00 08/27/22 09:50 89 L 08/27/22 09:45 90 08/27/22 09:45 08/27/22 09:40 89 L 08/27/22 09:30 91 08/27/22 09:30 08/27/22 09:29 08/27/22 09:29 90 Room Air 08/27/22 10:00 08/27/22 09:45 08/27/22 09:49 90 Room Air 08/27/22 09:15 97 Nasal Cannula 4 08/27/22 09:00 95 Nasal Cannula 4 08/27/22 07:55 08/27/22 07:55 100 Non-rebreather 15 08/27/22 07:53 100 Non-rebreather 15 08/27/22 07:53 08/27/22 07:51 100 Non-rebreather 15 08/27/22 07:51 08/27/22 07:45 08/27/22 07:45 100 Non-rebreather 15 08/27/22 07:38 100 08/27/22 07:38 08/27/22 07:26 100 08/27/22 07:26 Room Air 08/27/22 07:26 100 Lab & Micro Results (Past 24 Hours) RBC 5.30 M/uL (4.63-6.08) 08/27/22 WBC 11.92 K/ul (4.8-10.8) H 08/27/22 Hgb 15.5 g/dl (14.0-18.0) 08/27/22 Hct 45.8 % (40.1-51.0) 08/27/22 MCV 86.4 fL (80.0-100.0) 08/27/22 MCH 29.2 pg (25.0-34.0) 08/27/22 MCHC 33.8 g/dL (32.0-36.0) 08/27/22 RDW Standard Deviation 43.1 fL (36.4-46.3) 08/27/22 RDW Coefficient of Variation 13.7 % (11.5-14.5) 08/27/22 Plt Count 363 K/uL (130-400) 08/27/22 MPV 9.6 fL (9.4-12.4) 08/27/22 Neutrophils (%) (Auto) 60.2 % 08/27/22 Lymphocytes (%) (Auto) 29.6 % 08/27/22 Monocytes # (Auto) 0.80 K/uL (0.24-0.82) 08/27/22 Eosinophils # (Auto) 0.32 K/uL (0-0.50) 08/27/22 Immature Granulocyte % (Auto) 0.3 % 08/27/22 Neutrophils # (Auto) 7.17 K/uL (1.4-6.5) H 08/27/22 Lymphocytes # (Auto) 3.53 K/uL (1.2-3.4) H 08/27/22 Monocytes # (Auto) 0.80 K/uL (0.24-0.82) 08/27/22 Eosinophils # (Auto) 0.32 K/uL (0-0.50) 08/27/22 Basophils # (Auto) 0.06 K/uL (0-0.2) 08/27/22 Immature Granulocyte # (Auto) 0.04 K/uL (0.00-0.02) H 08/27 Na 137 mmol/L (136-145) 08/27/22 K 3.8 mmol/L (3.5-5.1) 08/27/22 Cl 105 mmol/L (98-107) 08/27/22 CO2 24 mmol/L (21-32) 08/27/22 Anion Gap 8 (3-11) 08/27/22 BUN 22 mg/dl (6-23) 08/27/22 Creatinine 0.84 mg/dl (0.6-1.4) 08/27/22 Estimated GFR ( Amer) 113.4 ml/min 08/27/22 Estimated GFR (Non-Af Amer) 97.9 ml/min 08/27/22 BUN/Creatinine Ratio 26.2 (10-20) H 08/27/22 Glu 144 mg/dl (70-99(Fasting)) H 08/27/22 Ca 9.2 mg/dl (8.5-10.1) 08/27/22 Total Bilirubin 0.5 mg/dl (0.2-1.0) 08/27/22 Direct Bilirubin 0.1 mg/dl (0-0.2) 08/27/22 AST 25 U/L (13-39) 08/27/22 ALT 28 U/L (7-52) 08/27/22 Alkaline Phosphatase 79 U/L (34-104) 08/27/22 TP 7.2 gm/dl (6.0-8.3) 08/27/22 Albumin 4.2 gm/dl (3.4-5.0) 08/27/22 Mg 1.8 mg/dl (1.7-2.4) 08/27/22 07:37 Calcium Level 9.2 mg/dl (8.5-10.1) 08/27/22 07:37 Prothromb Time International Ratio 1.0 (0.9-1.1) 08/27/22 07:3 7 Diagnostic Findings (Past 24 Hours) Chest X-Ray 08/27/22 07:34 XR chest 1V portable CLINICAL HISTORY: STEMI TECHNIQUE: Single frontal radiograph of the chest was obtained. Comparison: None available at the time of this dictation. FINDINGS: No lines and tubes are seen. The cardiac silhouette is mildly prominent accounting for projection. The lungs are clear. No evidence of pleural effusion or pneumothorax. IMPRESSION: No acute chest disease. ACT 112: Negative or not required by law. Electronically signed by: Stas Warner M.D. 08/27/2022 7:58 AM I & O Totals 24 Hours 08/26/22 08/27/22 08/28/22 06:59 06:59 06:59 Intake Total 700 / 700 Output Total 0 / 0 Balance 700 / 700 Cumulative 08/27/22 07:25 thru 08/27/22 14:00 Intake Total 700 Output Total 0 Balance 700 RT Ventilator Mngmt (Last Documented) Ventilator Ordered Settings Respiratory Rate 14 08/27/22 11:00 Ventilator - PT Measurements Respiratory Rate 14 Coding Level of Care Code 43156 Inpt Consult Level 3 Diagnoses STEMI (ST elevation myocardial infarction) I21.3 HTN (hypertension) with goal to be determined I10 Tobacco use disorder F17.200
--- NOTE | 2022-08-27 21:31 | XCELERA ---
[id number]
[2022-08-27] MEDS: TICAGRELOR 90 MG TAB PO SCH (21:59)
--- NOTE | 2022-08-28 05:36 | Electrocardiogram Report ---
Test Reason : Blood Pressure : / mmHG Vent. Rate : 069 BPM Atrial Rate : 258 BPM P-R Int : 000 ms QRS Dur : 136 ms QT Int : 396 ms P-R-T Axes : 000 087 076 degrees QTc Int : 424 ms Poor data quality, interpretation may be adversely affected Junctional rhythm Sinus tachycardia with A-V dissociation Right bundle branch block Inferior infarct , possibly acute Inferolateral injury pattern ACUTE MT / STEMI Consider right ventricular involvement in acute inferior infarct Abnormal ECG No previous ECGs available Confirmed by Riky Limon ([id number]) on 08/28/2022 5:36:33 AM Referred By: REFERRED SELF Confirmed By:Riky Limon
--- NOTE | 2022-08-28 05:41 | Electrocardiogram Report ---
Test Reason : Blood Pressure : / mmHG Vent. Rate : 078 BPM Atrial Rate : 078 BPM P-R Int : 168 ms QRS Dur : 124 ms QT Int : 402 ms P-R-T Axes : 036 036 049 degrees QTc Int : 458 ms Normal sinus rhythm Right bundle branch block Inferolateral infarct , possibly acute ACUTE AK / STEMI Abnormal ECG When compared with ECG of 27-AUG-2022 07:34, Sinus rhythm is no longer with AV dissociation Junctional rhythm is no longer Present ST less elevated in Inferolateral leads Confirmed by Riky Limon ([id number]) on 08/28/2022 5:41:33 AM Referred By: REFERRED SELF Confirmed By:Riky Limon
--- NOTE | 2022-08-28 05:44 | Electrocardiogram Report ---
Test Reason : Blood Pressure : / mmHG Vent. Rate : 075 BPM Atrial Rate : 075 BPM P-R Int : 170 ms QRS Dur : 126 ms QT Int : 418 ms P-R-T Axes : 055 047 067 degrees QTc Int : 466 ms Normal sinus rhythm Right bundle branch block Inferolateral infarct ACUTE CO / STEMI Abnormal ECG When compared with ECG of 27-AUG-2022 08:46, No significant change Confirmed by Riky Limon ([id number]) on 08/28/2022 5:44:15 AM Referred By: REFERRED SELF Confirmed By:Riky Limon
[2022-08-28 05:56] LABS: Basophils # (auto) 0.04 K/uL (0-0.2); Basophils % (auto) 0.4 %; Eosinophils % (auto) 1.8 %; Hematocrit (blood only) 42.3 % (40.1-51.0); Hemoglobin 14.2 g/dl (14.0-18.0); Immature Granulocytes # (auto) 0.04 K/uL (0.00-0.02); Immature Granulocytes % (auto) 0.4 %; Lymphocytes # (auto) 2.66 K/uL (1.2-3.4); Lymphocytes % (auto) 23.6 %; Mean Corpuscular Hemoglobin 28.9 pg (25.0-34.0); Mean Corpuscular Hgb Conc 33.6 g/dL (32.0-36.0); Mean Platelet Volume 9.8 fL (9.4-12.4); Monocytes # (auto) 0.96 K/uL (0.24-0.82); Monocytes % (auto) 8.5 %; Neutrophils # (auto) 7.38 K/uL (1.4-6.5); Neutrophils % (auto) 65.3 %; Platelet Count 300 K/uL (130-400); RDW Coefficient of Variation 14.1 % (11.5-14.5); RDW Standard Deviation 43.8 fL (36.4-46.3); Red Blood Count 4.92 M/uL (4.63-6.08); White Blood Count 11.28 K/ul (4.8-10.8)
[2022-08-28 06:17] LABS: BUN Creatinine Ratio 27.3 (10-20); Calcium 8.8 mg/dl (8.5-10.1); Creatinine Clr Calc Pharmacy 173.9 ml/min; Est GFR (African American) 125.3 ml/min; Est GFR (Non-African American) 108.1 ml/min; Potassium 3.9 mmol/L (3.5-5.1)
[2022-08-28 08:07] LABS: Estimated Average Glucose 131 mg/dl; Hemoglobin A1C 6.2 % (4.5-5.6)
--- NOTE | 2022-08-28 08:42 | Critical Care Progress Note ---
Date of Service August 28, 2022 Assessment & Plan (1) CAD (coronary artery disease): Plan: Reason Critically Ill: 56-year-old male brought to the hospital with chest pain, found to have a STEMI, now s/p PPCI to mRCA single ZOEY (08/27/2022) admitted to the ICU for postoperative supervision. Stable and awaiting downgrade from the ICU. Neuro - CAM ICU: NEGATIVE Sedation: None Analgesia: Tylenol as needed Cardiac - -CAD, STEMI: Now s/p PCI x RCA stent x1. Patient subjectively improved. Troponin downtrending this a.m. Deferring further management to cardiology * ASA/Brilinta, losartan, metoprolol, atorvastatin * Defer to cardiology and hospitalist team regarding dispo. Respiratory -Saturating well on room air. Ambulating without difficulty or shortness of breath. GI * Tolerated regular diet RENAL/LYTES * No significant electrolyte derangement. * Replace lytes as needed. - * No concerns at this time. ENDO * ICU hyperglycemic protocol. HEME * Stable H&H. ID * No concerns for infection at this point. INTEGUMENTARY * Clean dry and intact LINES/IV ACCESS - PIVs intact. DVT PROPHYLAXIS Thank you for allowing us to be part of this patient's care. Please refer to Dr. Hartley's documentation for any further recommendations. (2) STEMI (ST elevation myocardial infarction): (3) HTN (hypertension) with goal to be determined: (4) Hypertriglyceridemia: (5) Tobacco use disorder: Admission and Anticipated Discharge Date Admission Date: August 27, 2022 Supervising Physician Co-Signing Physician Notes Dr. Peters was resident physician during care of patient. I separately evaluated patient for lassiter portions of the history and the exam. I was present during the critical portion of medical decision making, and I discussed the case with the resident. I generally agree with the findings and plan. Largely asymptomatic overnight. Echocardiogram reviewed. Stable for downgrade out of ICU. Subjective No acute events overnight. Patient has no acute complaints this morning. He denies vomiting, nausea, headache. Tolerated breakfast well. Awaiting downgrade to med telemetry. Review of Systems Review of Systems: All systems reviewed & are unremarkable except as noted in HPI & below Physical Exam Physical Exam: General: No acute distress HEENT: PERRLA. Normal conjunctiva, anicteric sclera. Oropharynx normal. Respiratory: Normal respiratory effort, CTA BL. Cardiovascular: RRR without murmurs, gallops, or rubs. No edema. GI: Soft abdomen with normal bowel sounds heard on auscultation. Nontender x4 quadrants Neuro: Alert and oriented x3. Results & Data Results & Data ([facility]) Vital Signs (Past 12 Hours) Vital Signs Pulse Resp BP Pulse Ox 08/28/22 06:00 74 11 L 96 08/28/22 06:00 120/70 08/28/22 05:00 67 26 H 96 08/28/22 05:00 139/93 08/28/22 04:00 97 H 34 H 98 08/28/22 04:00 120/80 08/28/22 03:00 73 27 H 96 08/28/22 03:00 118/85 08/28/22 02:00 73 17 96 08/28/22 02:00 121/81 08/28/22 00:00 69 08/28/22 01:00 72 12 98 08/28/22 01:00 139/74 08/28/22 00:00 75 20 96 08/28/22 00:00 124/78 08/27/22 23:00 83 30 H 98 08/27/22 23:00 135/97 08/27/22 22:00 79 18 97 08/27/22 22:00 146/104 H 08/27/22 21:00 68 20 98 08/27/22 21:00 132/95 08/27/22 20:00 82 31 H 97 08/27/22 20:00 143/102 H Chemistry Results CMP Results: Na 137 mmol/L (136-145) 08/28/22 K 3.9 mmol/L (3.5-5.1) 08/28/22 Cl 106 mmol/L (98-107) 08/28/22 CO2 24 mmol/L (21-32) 08/28/22 Anion Gap 7 (3-11) 08/28/22 BUN 18 mg/dl (6-23) 08/28/22 Creatinine 0.66 mg/dl (0.6-1.4) 08/28/22 Estimated GFR ( Amer) 125.3 ml/min 08/28/22 Estimated GFR (Non-Af Amer) 108.1 ml/min 08/28/22 BUN/Creatinine Ratio 27.3 (10-20) H 08/28/22 Glu 108 mg/dl (70-99(Fasting)) H 08/28/22 Ca 8.8 mg/dl (8.5-10.1) 08/28/22 Total Bilirubin 0.5 mg/dl (0.2-1.0) 08/27/22 Direct Bilirubin 0.1 mg/dl (0-0.2) 08/27/22 AST 25 U/L (13-39) 08/27/22 ALT 28 U/L (7-52) 08/27/22 Alkaline Phosphatase 79 U/L (34-104) 08/27/22 TP 7.2 gm/dl (6.0-8.3) 08/27/22 Albumin 4.2 gm/dl (3.4-5.0) 08/27/22 Resident Activity Tracking Resident Involvement: Resident Care Provided Care Provided: Adult Hospital Medicine
--- NOTE | 2022-08-28 08:44 | Billing Data ---
Date of Service August 28, 2022 Coding Level of Care Code 34107 Subseq Hosp Care Lvl 3
[2022-08-28] MEDS: METOPROLOL TARTRATE 25 MG TAB PO SCH (08:56)
[2022-08-28] MEDS: ATORVASTATIN 40 MG TAB PO SCH (08:57)
[2022-08-28] MEDS: PANTOprazole 40 MG TAB PO SCH (08:57)
[2022-08-28] MEDS: TICAGRELOR 90 MG TAB PO SCH (08:57)
[2022-08-28] MEDS ORDERED: LOSARTAN POTASSIUM 25 MG TAB PO SCH (09:00)
[2022-08-28] MEDS ORDERED: ASPIRIN 81 MG ECTAB PO SCH (09:00)
--- NOTE | 2022-08-28 12:34 | Cardiology Progress Note ---
Date of Service August 28, 2022 Assessment & Plan (1) CAD (coronary artery disease): Plan: [facility] --mild to moderate non-culprit disease 2. Preserved LV function - EF 45-50%. Severe hypokinesis to akinesis of inferior wall. 3. Hypertension 4. Dyslipidemia 5. Tobacco abuse Chest pain free, troponin has peaked. Hemodynamically and electrically stable. No signs of heart failure on exam. No access site complications. -- Continue DAPT with ASA/Ticagrelor -- Cotninue current losartan, metoprolol -- Continue statin -- Up walking in halls later today. If no recurrent chest pain and electrically stable OK with discharge later today. Follow-up with me in 1-2 weeks. Admission and Anticipated Discharge Date Admission Date: August 27, 2022 Subjective Feeling well this morning. No chest pain. No shortness of breath. No other new concerns. Telemetry reviewed -- Rare NSVT, SVT yesterday. Review of Systems Review of Systems: All systems reviewed & are unremarkable except as noted in HPI & below Physical Exam Physical Exam: General: Comfortable HEENT: Sclerae anicteric Lungs: Clear to auscultation anteriorly Cardiac: Regular rate and rhythm, no murmurs. Vascular: Right radial artery access site with no ecchymosis, hematoma. Distal pulse and sensation intact. Abdomen: Soft, nontender Extremities: Well perfused, no peripheral edema Neuro: Nonfocal Psych: Alert orient x3 Results & Data ([facility]) Vital Signs (Past 12 Hours) Vital Signs Pulse Resp BP Pulse Ox 08/28/22 06:00 74 11 L 96 08/28/22 06:00 120/70 08/28/22 05:00 67 26 H 96 08/28/22 05:00 139/93 08/28/22 04:00 97 H 34 H 98 08/28/22 04:00 120/80 08/28/22 03:00 73 27 H 96 08/28/22 03:00 118/85 08/28/22 02:00 73 17 96 08/28/22 02:00 121/81 08/28/22 01:00 72 12 98 08/28/22 01:00 139/74 PG Care Time/CCT Total # of Minutes Spent Total Time Spent with Patient: Total time spent is greater than 50% in coordination of care (as documented) at patient's floor/unit and/or counseling patient: Coding Level of Care Code 77763 Subseq Hosp Care Lvl 3 Diagnoses CAD (coronary artery disease) I25.10
--- NOTE | 2022-08-28 13:06 | Hospitalist Progress Note ---
Date of Service August 28, 2022 Assessment & Plan (1) STEMI (ST elevation myocardial infarction): Plan: STEMI: Risk factors: H/O HTN, Tobacco use disorder, Obesity S/P PCI of mid RCA with single drug-eluting stent Initial troponin:760 subsequent troponin went up to 53,810 and that came down to 31,000 590 as of 08/28/2022 EKG shows: signs of inferolateral ST elevations CXR: No acute chest disease. Check resting ECHO--normal LV size with mildly reduced systolic function with EF 45 to 50%, severe hypokinesis to akinesis of the inferior wall, mild hypokinesis of the inferolateral wall, no left ventricular hypertrophy, no segment significa nt valvular abnormalities, mild pulmonary hypertension estimated RVSP 39 mmHg, mildly dilated aortic root at 4.3 cm, no prior study to compare Appreciate cardiology input and recommendation Started on Aspirin, Brilinta, metoprolol, Lipitor, losartan Ambulating in the room and in the hallway likely discharge in the afternoon Postprocedural A. fib RVR S/P successful cardioversion Currently in sinus No anticoagulation recommended currently Cardiology on board-appreciate input and recommendation Hypertension Quit taking medications about 2 years ago Currently not on any medications Started on metoprolol, losartan Monitor Tobacco use disorder Smokes 1 pack/day Advised to quit smoking Eczema [facility] Px: SCDs for now Code Status Full Code Likely discharge this afternoon Admission and Anticipated Discharge Date Admission Date: August 27, 2022 Subjective 08/28/2022 The patient was seen and examined in ICU in the setting of telemetry He has been free of any pain Denies any palpitation, chest pain, shortness of breath No abdominal pain nausea no vomiting Review of Systems Review of Systems: All systems reviewed and are unremarkable except as noted below Cardiovascular: Additional Comments: No cardiac symptoms Physical Exam Physical Exam: Lying in bed comfortable Constitutional: well developed, well nourished and + obese; not ill appearing Eyes: PERRL, conjunctivae normal, anicteric sclerae ENMT: external ear and nose normal, oropharynx normal Neck: trachea midline, no thyromegaly Respiratory: no respiratory distress Auscultation: lungs clear to auscultation bilaterally Cardiovascular: Rate/Rhythm: regular rate and regular rhythm; not tachycardic Heart Sounds: normal S1 and normal S2; no murmur Extremities: + edema (Trace edema bilaterally) Gastrointestinal (Abdomen): Inspection/Auscultation: normal bowel sounds; abdomen not distended Percussion/Palpation: abdomen soft; abdomen nontender Musculoskeletal: No acute arthritis in any joint Neurologic: Alert, awake and oriented x3. No focal sensory and motor deficit appreciated Psychiatric: A+Ox3, euthymic affect Lymphatic: no cervical or axillary lymphadenopathy Results & Data Results & Data ([facility]) Vital Signs (Past 12 Hours) Vital Signs Pulse Resp BP Pulse Ox 08/28/22 06:00 74 11 L 96 08/28/22 06:00 120/70 08/28/22 05:00 67 26 H 96 08/28/22 05:00 139/93 08/28/22 04:00 97 H 34 H 98 08/28/22 04:00 120/80 08/28/22 03:00 73 27 H 96 08/28/22 03:00 118/85 08/28/22 02:00 73 17 96 08/28/22 02:00 121/81 08/28/22 01:00 72 12 98 08/28/22 01:00 139/74 Laboratory Results Short CBC 08/28/22 Range/Units 05:26 WBC 11.28 H (4.8-10.8) K/ul Hgb 14.2 (14.0-18.0) g/dl Hct 42.3 (40.1-51.0) % Plt Count 300 (130-400) K/uL BMP 08/28/22 05:26 Sodium 137 Potassium 3.9 Chloride 106 Carbon Dioxide 24 BUN 18 Creatinine 0.66 Glucose 108 H Calcium 8.8 Medications Administered Current Inpatient Medications Acetaminophen (Acetaminophen 325 Mg Tab) 650 mg PO Q4H PRN PRN Reason: MILD Pain (Scale 1,2,3) Stop: 09/26/22 08:54 Aspirin (Aspirin 81 Mg Ectab) 81 mg PO DAILY [facility] Stop: 09/27/22 08:59 Last Admin: 08/28/22 08:57 Dose: 81 mg Atorvastatin Calcium ([facility]vastatin 40 Mg Tab) [facility] Stop: 09/26/22 10:59 Last Admin: 08/28/22 08:57 Dose: 80 mg Losartan Potassium (Losartan Potassium 25 Mg Tab) [facility] Stop: 09/27/22 08:59 Last Admin: 08/28/22 08:57 Dose: 25 mg Metoprolol Tartrate (Metoprolol Tartrate 25 Mg Tab) 25 mg PO BID [facility] Stop: 09/26/22 10:59 Last Admin: 08/28/22 08:56 Dose: 25 mg Ondansetron HCl (Ondansetron Inj 2 Mg/Ml 2 Ml Vial) 4 mg IV Q6H PRN PRN Reason: Nausea And Vomiting Stop: 09/26/22 08:54 Pantoprazole Sodium (Pantoprazole 40 Mg Tab) 40 mg PO DAILY [facility] Stop: 09/26/22 10:59 Last Admin: 08/28/22 08:57 Dose: 40 mg Ticagrelor (Ticagrelor 90 Mg Tab) 90 mg PO BID [facility] Stop: 09/26/22 20:59 Last Admin: 08/28/22 08:57 Dose: 90 mg
--- NOTE | 2022-08-29 07:40 | Discharge Summary ---
Date of Service August 29, 2022 Admission HPI Per Admitting Provider Patient is a 56-year-old male with history of hypertension, tobacco use disorder, eczema and no other significant past medical history presents with history of sudden onset of chest pain which woke him up from sleep at about 2 AM this morning. Patient initially thought it to be heartburn and took some antacid medication (could not specify) and went back to sleep. After he woke up for work he noticed to have significant retrosternal chest heaviness, 10/10 intensity, radiating to back of his neck and head associated with headache, nausea, diaphoresis, dizziness and dyspnea. Patient took Tylenol 500 mg which did not relieve his symptoms. No known aggravating factors. He denies similar episodes in the past. On arrival to ED, patient had ongoing chest pain which improved with sublingual nitroglycerin and supplemental oxygen. EKG showed signs of inferolateral ST elevations and heart alert was called. Patient underwent emergent cardiac catheterization and was noted to have 100% mid RCA occlusion. Patient had PCI of mid RCA with single drug-eluting stent. Patient was found to have mild residual haziness at the distal aspect of the stent thought most likely to represent residual thrombus. Postprocedure, patient developed atrial fibrillation with RVR and had successful cardioversion to sinus rhythm with single synchronized shock. Currently patient denies any chest pain, nausea, dizziness, dyspnea, headache. Also denies any history of palpitations, pedal edema, cough, fever, chills, change in vision, vomiting, abdominal pain, diarrhea, dysuria, recent change in medications. Admission Exam Per Admitting Provider Physical Exam: Physical Exam: Vitals signs as noted above General Appearance:Obese, no apparent distress Head: normocephalic, Atraumatic Eyes: normal inspection, EOMI Neck: supple, Trachea midline Respiratory/Chest: Normal breath sounds, CTA, No accessory muscle use Cardiovascular: S1, S2, No murmur Abdomen/GI:Soft, Non tender, Bowel sounds present Extremities/Musculoskeletal:normal inspection, no edema Neurologic/Psych:AAOX3, grossly no focal neurological deficits Skin: normal color, warm, +Eczema predominantly in back Principal Diagnosis NSTEMI, that is post RCA drug-eluting stent placement Discharge Exam Lying in bed comfortable Constitutional well developed, well nourished and + obese; not ill appearing Eyes PERRL, conjunctivae normal, anicteric sclerae ENMT external ear and nose normal, oropharynx normal Neck trachea midline, no thyromegaly Respiratory no respiratory distress Auscultation: lungs clear to auscultation bilaterally Cardiovascular Rate/Rhythm: regular rate and regular rhythm; not tachycardic Heart Sounds: normal S1 and normal S2; no murmur Extremities: + edema (Trace edema bilaterally) Gastrointestinal (Abdomen) Inspection/Auscultation: normal bowel sounds; abdomen not distended Percussion/Palpation: abdomen soft; abdomen nontender Psychiatric A+Ox3, euthymic affect Lymphatic no cervical or axillary lymphadenopathy Discharge Data Allergies Allergy/AdvReac Type Severity Reaction Status Date / Time No Known Allergies Allergy Unverified 08/27/22 10:54 Consultations 08/27/22 08:04 ED Decision to Admit Stat 08/27/22 09:01 Consult Cardiac Rehabilitation Routine 08/27/22 09:02 Consult Rod Welder Routine Procedures Performed Operation Date: 08/27/22 08:00 Actual Procedures p Cath, Left with Cors and Vent - Michael Aguilar MD s Cardioversion - Michael Aguilar MD s Cineradiography w/Routine Exam - Michael Aguilar MD p Aspiration/PCI w/ZEOY for Stemi - Michael Aguilar MD Ordered Studies 08/27/22 07:35 CL Cath Imgs for PACS use only Stat Hospital Course (1) STEMI (ST elevation myocardial infarction): STEMI: Risk factors: H/O HTN, Tobacco use disorder, Obesity S/P PCI of mid RCA with single drug-eluting stent Initial troponin:760 subsequent troponin went up to 53,810 and that came down to 31,000 590 as of 08/28/2022 EKG shows: signs of inferolateral ST elevations CXR: No acute chest disease. Check resting ECHO--normal LV size with mildly reduced systolic function with EF 45 to 50%, severe hypokinesis to akinesis of the inferior wall, mild hypokinesis of the inferolateral wall, no left ventricular hypertrophy, no segment sign ificant valvular abnormalities, mild pulmonary hypertension estimated RVSP 39 mmHg, mildly dilated aortic root at 4.3 cm, no prior study to compare Appreciate cardiology input and recommendation Started on Aspirin, Brilinta, metoprolol, Lipitor, losartan Ambulating in the room and in the hallway likely discharge in the afternoon Postprocedural A. fib RVR S/P successful cardioversion Currently in sinus No anticoagulation recommended currently Cardiology on board-appreciate input and recommendation Hypertension Quit taking medications about 2 years ago Currently not on any medications Started on metoprolol, losartan Monitor Tobacco use disorder Smokes 1 pack/day Advised to quit smoking Eczema [facility] Px: SCDs for now Code Status Full Code Likely discharge this afternoon Total Time Total Time Spent Total Time Spent (In Minutes): 35 minutes Discharge Plan Discharge Items Patient Disposition: Home - Self-Care Reason For Visit: STEMI Discharge Diagnosis: NSTEMI, that is post RCA drug-eluting stent placement Condition on Discharge: Good Activity: As commented below Non-emergency contact: Primary Care Provider Call non-emergency contact if: you have any medication questions and your symptoms worsen Follow-up/Referrals: Honorio Ackerman, [Primary Care Provider] - 09/02/22 1:00 pm (Hospital follow-up If you need to change this appointment plese call [phone] New Patient Visit scheduled for September 30 at 9:[address] Ackerman) Diet: Heart Healthy Addtl Attending Provider Instructions: Please take precautions to avoid fall Take your medications as advised Please make an appointment with your primary care physician within 7 days Keep appointment with your healthcare provider ACTIVITY RECOMMENDATIONS: Excess manipulation of the wrist should be avoided for the next 24-48 hours. * No lifting over 2 pounds (approximately a 1/2 gallon of milk) with the utilized arm for 24 hours. * No strenuous activity such as bowling or tennis for 3 days. * Keep the site of the procedure covered with a bandage for 24 hours. *You may shower the day after the procedure. Do not take a tub bath or submerge the puncture site in water for the next 3 days. *Do not operate any motorized equipment for 3 days. SPECIAL CARE INSTRUCTIONS: The site may be slightly bruised and sore following your procedure. Should any of the following occur, contact the DrBertram who performed your procedure. 1. Redness/inflammation, swelling, chills, or fever, or colored drainage at procedure site within 3-7 days after your procedure. 2. Coldness, discoloration, ongoing numbness, severe pain, or swelling. Expect mild tingling of hand and tenderness at the puncture site for up to three days. If this persists beyond three days, or other symptoms develop, notify the Dr. who performed your procedure. BLEEDING: If the procedure site on your wrist begins to bleed, do not panic 1. Place 1 or 2 fingers firmly just slightly above the insertion site to stop the bleeding. You may be able to feel your pulse as you hold pressure. 2. Lift your finger after 5 minutes to see if the bleeding has stopped. 3. Once the bleeding has stopped, gently wipe the wrist area clean with a bandage. * If the bleeding from your wrist does not stop after 10 minutes, or if there is a large amount of bleeding or spurting, call 911 ([address] drive yourself to the hospital). SKIN IRRITATION: * You may experience some redness and/or swelling in the area where radiation was administered. If any skin irritation occurs, please contact your family physician. FOLLOW UP VISIT: Keep any scheduled doctor appointments. Pending Studies at Discharge: No Stand-Alone Forms: [employer], Smoking Cessation Medications and DC Order Prescriptions: New Brilinta 90 mg Tablet 90 mg PO BID Qty: 60 0RF atorvastatin 40 mg Tablet 80 mg PO QAM 30 Days Qty: 60 0RF aspirin 81 mg Tablet,Delayed Release (Dr/Ec) 81 mg PO DAILY Qty: 30 0RF losartan 25 mg Tablet 25 mg PO QAM 30 Days Qty: 30 0RF metoprolol tartrate 25 mg Tablet 25 mg PO BID 30 Days Qty: 60 0RF pantoprazole 40 mg Tablet,Delayed Release (Dr/Ec) 40 mg PO DAILY 30 Days Qty: 30 0RF Continued Tylenol 500 mg PO UNKNOWN PRN (Reason: Pain) Discontinued ibuprofen 100 mg Tablet 100 mg PO UNKNOWN PRN (Reason: Pain) Discharge Orders: Discharge Order (Routine); Ordered 08/28/22 Ordered By: Dolores Santana/Other Patient Handouts: Prediabetes, 5 Steps for Eating Healthier Admission Data Admit Date/Time: 08/27/22 09:02 Attending Provider: Dolores Stringer Admit Provider: Michael Aguilar Primary Care Provider: Honorio Ackerman Other Providers: Dolores Stringer ; López Hartley Other Interventions: Discharge Summary Assessment (RN) Last Done: 08/28/22 15:44
--- NOTE | 2022-08-29 23:02 | Electrocardiogram Report ---
Test Reason : Blood Pressure : / mmHG Vent. Rate : 084 BPM Atrial Rate : 084 BPM P-R Int : 160 ms QRS Dur : 130 ms QT Int : 414 ms P-R-T Axes : 057 -11 069 degrees QTc Int : 489 ms Normal sinus rhythm Right bundle branch block Inferior infarct (cited on or before 27-AUG-2022) Abnormal ECG When compared with ECG of 27-AUG-2022 09:33, Serial changes of Inferior infarct Present Confirmed by Riky Limon ([id number]) on 08/29/2022 11:01:43 PM Referred By: REFERRED SELF Confirmed By:Riky Limon
== END 2022-08-28 16:03 | disposition home or self-care (01) | DRG 247 ==
LOC: ED 07:25 → 1E 08:00